=== PATIENT | male | born 1980 | race African-American/Black ===

== ENCOUNTER 2018-03-28 03:07 | Emergency (ER) | payer BC ==
[2018-03-28] MEDS ORDERED: Acetaminophen 500 MG TAB ONE (05:25)
[2018-03-28] MEDS ORDERED: ISOVUE-370 76%-LOCM 1 ML ONE (14:10)
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
== END 2018-03-28 05:30 | disposition home or self-care (01) ==
LOC: ERS 03:07
DX: S06.9X1A Unspecified intracranial injury with loss of consciousness of 30 minutes or less, initial encounter (principal); S01.81XA Laceration without foreign body of other part of head, initial encounter; G40.909 Epilepsy, unspecified, not intractable, without status epilepticus; F41.9 Anxiety disorder, unspecified; F17.210 Nicotine dependence, cigarettes, uncomplicated; Y04.0XXA Assault by unarmed brawl or fight, initial encounter
CPT/HCPCS: 70450; 70486; 72125